=== PATIENT | male | born 1970 | race Caucasian/White ===

== ENCOUNTER 2021-11-07 20:54 | Emergency (ER) | payer BC ==
[2021-11-07 21:06] VITALS: BP 134/88; PULSE 85; RESP 16; TEMP 99.4
--- NOTE | 2021-11-07 21:54 | XR ---
EXAMINATION TYPE: XR ankle complete LT DATE OF EXAM: 11/07/2021 COMPARISON: NONE HISTORY: Ankle pain TECHNIQUE: 3 views FINDINGS: Ankle mortise is anatomic. There is soft tissue swelling around the ankle joint. I see no f racture. Joint spaces are normal. IMPRESSION: Soft tissue swelling. No fracture.
--- NOTE | 2021-11-07 21:55 | ED ---
General Adult HPI - General Chief complaint: Extremity Problem,Nontraumatic Stated complaint: LT ankle injury, Post-op Time Seen by Provider: 11/07/21 21:12 Source: patient, RN notes reviewed, old records reviewed Mode of arrival: ambulatory Limitations: no limitations - History of Present Illness Initial comments: 31-year-old male sent in for DVT rule out. Patient is 4 days postop surgery on his left patella. This was performed at an outside hospital. He's had increased swelling to his left foot and ankle and was sent in for evaluation of possible DVT. He does state that he had injured the left ankle 3 days prior while attempting to [id number] on the left. He inverted his foot and his had pain and swelling which is worsened in the ankle since that time. No reported fever. Patient states his knee feels fine. - Related Data Allergies Allergy/AdvReac Type Severity Reaction Status Date / Time No Known Allergies Allergy Verified 11/07/21 21:06 Review of Systems ROS Statement: Those systems with pertinent positive or pertinent negative responses have been documented in the HPI. ROS Other: All systems not noted in ROS Statement are negative. Past Medical History Past Medical History: No Reported History History of Any Multi-Drug Resistant Organisms: None Reported Past Surgical History: Orthopedic Surgery Past Psychological History: No Psychological Hx Reported Smoking Status: Never smoker Past Alcohol Use History: Occasional Past Drug Use History: None Reported General Exam Limitations: no limitations General appearance: alert, in no apparent distress Head exam: Present: atraumatic, normocephalic Eye exam: Present: normal appearance, PERRL ENT exam: Present: normal exam Neck exam: Present: normal inspection. Absent: tenderness, meningismus Respiratory exam: Present: normal lung sounds bilaterally. Absent: respiratory distress, wheezes Cardiovascular Exam: Present: regular rate, normal rhythm GI/Abdominal exam: Absent: distended, tenderness Extremities exam: Present: pedal edema, joint swelling, other (The left foot is swollen and ecchymotic. DP and PT pulses are 2+.) Neurological exam: Present: alert, oriented X3, CN II-XII intact. Absent: motor sensory deficit Psychiatric exam: Present: normal affect, normal mood Skin exam: Present: erythema (Warmth to the left foot.) Course Vital Signs 11/07/21 21:01 Temperature 99.4 F Pulse Rate 85 Respiratory 16 Rate Blood Pressure 134/88 O2 Sat by Pulse 96 Oximetry Medical Decision Making - Medical Decision Making 51-year-old male with pain and swelling to the left foot. The foot is ecchymotic. Distal pulses are intact. There is soft tissue swelling. Ultrasound as well as x-rays are performed. X-rays are negative for acute fracture, showing soft tissue swelling. Ultrasound performed, negative for DVT. Patient should continue to follow with his orthopedic surgeon. Return with worsening or changing symptoms. Disposition Clinical Impression: Ankle sprain Disposition: HOME SELF-CARE Condition: Fair Instructions (If sedation given, give patient instructions): Ankle Sprain (DC) Additional Instructions: Please follow up with her orthopedic surgeon. Please return with any new or worsening symptoms. Is patient prescribed a controlled substance at d/c from ED?: No Referrals: Fabiola Houston MD [Family Provider] - 1-2 days Time of Disposition: 22:37
--- NOTE | 2021-11-07 22:00 | XR ---
EXAMINATION TYPE: XR foot complete LT DATE OF EXAM: 11/07/2021 COMPARISON: NONE HISTORY: Pain and swelling TECHNIQUE: 3 views FINDINGS: There is soft tissue swelling of the forefoot. Metatarsals appear intact. The toes appear i ntact. IMPRESSION: Soft tissue swelling. No fracture seen.
--- NOTE | 2021-11-07 22:37 | US ---
EXAMINATION TYPE: US venous doppler duplex LE LT DATE OF EXAM: 11/07/2021 10:14 PM COMPARISON: NONE CLINICAL HISTORY: pain/swelling. Recent knee surgery SIDE PERFORMED: Left TECHNIQUE: The lower extremity deep venous system is examined utilizing real time linear array sonog brigido with graded compression, doppler sonography and color-flow sonography. VESSELS IMAGED: Common Femoral Vein Deep Femoral Vein Greater Saphenous Vein * Femoral Vein Popliteal Vein Small Saphenous Vein * Proximal Calf Veins (* superficial vessels) Left Leg: Appears negative for DVT IMPRESSION: No evidence of deep vein thrombosis in the left leg.
== END 2021-11-07 23:12 | disposition home or self-care (01) ==
LOC: EC 20:54
DX: S93.402A Sprain of unspecified ligament of left ankle, initial encounter (principal); X58.XXXA Exposure to other specified factors, initial encounter
CPT/HCPCS: 99284